=== PATIENT | female | born 1935 | race Caucasian/White ===

== ENCOUNTER 2016-05-15 04:35 | Inpatient (IN) | payer OTHER ==
[~2016-05-15] VITALS: Ht 152.4 cm; Wt 93.4 kg
[~2016-05-15 04:35] MED LIST: DIOVAN; MOTRIN 800 MG
[2016-05-15 04:40] VITALS: BP 155/65
--- NOTE | 2016-05-15 05:00 | NUR ---
PT TAKEN TO BED 7
--- NOTE | 2016-05-15 05:06 | NUR ---
Dr. Banda evaluating patient at bedside.
[2016-05-15] MEDS ORDERED: ASPIRIN 325 MG TAB PO ONE (05:10)
[2016-05-15] MEDS ORDERED: NITROGLYCERIN 0.4 MG TAB SL ONE (05:10)
--- NOTE | 2016-05-15 05:15 | NUR ---
PATIENT PRESENTS TO ED WITH CHEST PAIN . PT STATES SHE HAS HAD THE PAIN X2DAYS AND FEELS SHARP AND INTERMITTENT . DENIES N/V/D; SKIN IS PINK/WARM/DRY; AAOX4 WITH EVEN AND STEADY GAIT; LUNGS CLEAR BL; HR EVEN AND REGULAR; PT DENIES ANY FEVER, SOB, OR COUGH AT THIS TIME; PATIENT STATES PAIN OF 8/10 AT THIS TIME; VSS; PATIENT POSITIONED FOR COMFORT; HOB ELEVATED; BEDRAILS UP X2; BED DOWN. ER MD MADE AWARE OF PT STATUS.
--- NOTE | 2016-05-15 05:26 | NUR ---
X-Ray at bedside.
--- NOTE | 2016-05-15 07:10 | NUR ---
RECEIVED REPORT FROM THE ER NURSE. PT CAME ON FLOOR ON 714. PT AMBULATED FROM THE GURNEY TO BED. PT IS ALERT AND ORIENTED, KINYARWANDA SPEAKING. SHE WANTED TO USE THE BATHROOM AND AMBULATED WITH VERY LITTLE ASSIST. I INTRODUCED MYSELF AND UPDATED THE INFORMATION BOARD. SHE IS STILL IN HER PERSONAL CLOTHES. I HAD HER REMOVED HER TOP AND PANTS AND DRESS INTO HER GOWN. SKIN IS INTACT. PT IS HAS AN IV ON L HAND 22G SL. V/S WITHIN NORMAL LIMITS. NO PAIN REPORTED AT THIS TIME. WILL CONTINUE WITH ADMISSION. ORIENTED HER TO THE ROOM, CALL LIGHT WITHIN REACH. ALL SAFETY MEASURES IN PLACE. WILL CONTINUE TO MONITOR PT.
--- NOTE | 2016-05-15 07:15 | NUR ---
Patient will be admitted to care of DR. WHEELER. Admited to TELE. Will go to room 110A. Belongings list completed. Report to TEE MAGAÑA.
--- NOTE | 2016-05-15 07:23 | NUR ---
Pt report given to TEE MAGAÑA. Transfer of care at this time.
--- NOTE | 2016-05-15 08:31 | NUR ---
PATIENT HAS BEEN SCREENED AND CATEGORIZED HIGH NUTRITION RISK. PATIENT WILL BE SEEN WITHIN 1-2 DAYS OF ADMISSION. 05/15/16-05/16/[address]
[2016-05-15] MEDS ORDERED: ONDANSETRON 4 MG/2 ML VIAL IVP PRN (08:35)
[2016-05-15] MEDS ORDERED: ACETAMINOPHEN 325 MG TAB PO PRN (08:35)
[2016-05-15] MEDS ORDERED: DOCUSATE SODIUM 100 MG GELCAP PO PRN (08:35)
[2016-05-15] MEDS ORDERED: MORPHINE SULFATE 2 MG/ML SYR IVP PRN (08:35)
[2016-05-15] MEDS ORDERED: NITROGLYCERIN 0.4 MG TAB SL PRN (08:55)
[2016-05-15 09:18] VITALS: BP 137/52
[2016-05-15] MEDS ORDERED: METOPROLOL 25 MG TAB PO SCH (10:00)
[2016-05-15] MEDS ORDERED: LISINOPRIL 5 MG TAB PO SCH (10:00)
[2016-05-15] MEDS ORDERED: ATORVASTATIN 20 MG TAB PO SCH (10:00)
--- NOTE | 2016-05-15 10:30 | NUR ---
PT'S WAS AT HER BEDSIDE. GAVE ME HIS NUMBER FOR EMERGENCY CONTACT. WILL KEEP IN SOFT CHART. PT IS SLEEPING SOUNDLY. WILL CONTINUE TO MONITOR PT.
[2016-05-15 12:00] VITALS: BP 131/60
--- NOTE | 2016-05-15 12:00 | NUR ---
PT EATING HER LUNCH. PT ATE MAJORITY OF HER MEAL. TOLERATED WELL. PT SPOKE OF A FALL SHE HAD A COUPLE OF DAYS AGO. SHE FELL AT HOME. SHE HURT HER R LEG AND HIT HER HEAD. SHE IS STILL KIND OF BRUISED UP IN THE FACE. PLACED A BEDSIDE COMMODE BY HER BED SO THAT SHE DOESN'T HAVE TO WALK FAR. ASKED HER IF SHE WANTED A PAIN MED. PT REFUSED. WILL CONTINUE TO MONITOR PT.
[2016-05-15] MEDS: NACL 0.9% 1,000 ML IV SCH (12:40)
--- NOTE | 2016-05-15 13:01 | NUR ---
RADIOLOGY CAME TO GET PT FOR A CT OF THE HEAD. THEY TOOK HER IN A WHEELCHAIR.
--- NOTE | 2016-05-15 13:22 | NUR ---
PT BACK ON THE FLOOR. PT RECONNECTED TO THE IV. NS INFUSING 20ML/HR. PT IS RESTING COMFORTABLY IN BED. CALL LIGHT AT BEDSIDE. WILL CONTINUE TO MONITOR PT.
--- NOTE | 2016-05-15 15:04 | NUR ---
Yohana TAVARES JUST FINISHED. PT TOLERATED WELL. PT IS NOW BACK IN BED. CALL LIGHT WITHIN REACH. WILL CONTINUE TO MONITOR PT.
[2016-05-15 16:47] VITALS: BP 141/89
--- NOTE | 2016-05-15 17:00 | NUR ---
PT RESTING COMFORTABLY IN BED. NO SIGNS OF DISTRESS. WILL CONTINUE TO MONITOR PT.
[2016-05-15] MEDS: ISOSORBIDE DINITRATE 10 MG TAB PO SCH (17:08)
--- NOTE | 2016-05-15 18:30 | NUR ---
AT BEDSIDE. PT SITTING AT EDGE OF BED. NO SIGNS OF DISTRESS. IV STILL INFUSING. PT JUST VISITING. NO SIGNS OF DISTRESS OR PAIN. WILL CONTINUE TO MONITOR PT.
--- NOTE | 2016-05-15 19:10 | NUR ---
ENDORSED PT TO THE CALL CENTER PROFESSIONAL NURSE AT BEDSIDE FOR CONTINUITY OF CARE. PT IS STABLE. AT BEDSIDE.
--- NOTE | 2016-05-15 19:11 | NUR ---
RECEIVED REPORT FROM DAY SHIFT NURSE, TEE MAGAÑA. PT IS AAOX4, FAMILY MEMBER AT BEDSIDE, DENIES ANY PAIN AT THIS TIME. ON NASAL CANNULA AT 2LPM, NO S/S OF RESPIRATORY DISTRESS/DISCOMFORT NOTED. IV SITE IS PATENT AND INTACT, INFUSING WELL. SKIN IS WAR TO TOUCH, HAS FACIAL ABRASION NOTED. PLAN OF CARE DISCUSSED, VERBALIZED UNDERSTANDING. SAFETY MEASURES CHECKED, CALL LIGHT WITHIN REACH. WILL CONTINUE TO MONITOR.
--- NOTE | 2016-05-15 19:30 | NUR ---
PT IS MALTESE SPEAKER,PT IS TRYING TO GET OUT FROM HER BED. ASK THE PT WHAT IS GOING ON TO HER WITH CO-WORKER TERESA WHO IS MALTESE SPEAKER. PT STATED THAT SHE IS OKAY AND THERE IS NOTHING WRONG TO HER. REMINDED THE PT ON HOW TO USE CALL LIGHT WHEN GETTING UP, VERBALIZED UNDERSTANDING. WILL CONTINUE TO MONITOR.
[2016-05-15 19:55] VITALS: BP 140/67
--- NOTE | 2016-05-15 21:30 | NUR ---
PT IS ANXIOUS AND SHE IS TRYING TO GET OUT FROM HER BED. OFFERED PT BEDSIDE COMMODE, PT REFUSED. ASKED WHAT'S GOING TO HER, PT SAID SHE IS OKAY. REMINDED THE PT TO CALM DOWN AND RELAX, VERBALIZED AGREEMENT. SAFETY MEASURES CHECKED, CALL LIGHT WITHIN REACH. CHARGE NURSE AWARE OF PT'S CONDITION. WILL NOTIFY .
--- NOTE | 2016-05-15 21:57 | NUR ---
PAGED DR Luis LEMON, TO UPDATE PT'S CONDITION. WAITING FOR CALLBACK.
--- NOTE | 2016-05-15 22:00 | NUR ---
CALLBACK RECEIVED FROM DR. Luis LEMON. UPDATED PT'S CONDITION, PT IS ANXIOUS AND AGITATED. WILL PUT A NEW ORDER FOR THE PT.
[2016-05-15] MEDS ORDERED: LORazepam 0.5 MG TAB PO PRN (22:40)
--- NOTE | 2016-05-15 23:00 | NUR ---
PT IS OUT OF TELE MONITOR PER [employer]ISTR[employer]. CHECKED THE PT AND PATIENT PULLED HER TELE BOX. MALAY SPEAKER ABRAHAM WAS WITH ME, ASKED THE PT AND SHE SAID THE SHE IS UNCOMFORTABLE WITH THE TELE BOX. NOTED HER NASAL CANNULA WAS OFF. REMINDED THE PT ABOUT THE REASON FOR HAVING TELE BOX AND NASAL CANNULA, VERBALIZED AGREEMENT TO PUT IT BACK. ASKED THE PT WHAT IS GOING ON IN HER MIND, PT VERBALIZED THAT SHE IS WORRIED ABOUT HER . REMINDED THE PT TO KEEP CALM AND RELAX, VERBALIZED AGREEMENT. WILL CONTINUE TO MONITOR.
--- NOTE | 2016-05-15 23:12 | NUR ---
ADMINISTERED ATIVAN 0.5 MG PO PER MD ORDERED. MED INFORMATION WAS GIVEN, BENEFITS AND S/E. PT TOLERATED WELL.
[2016-05-16] VITALS: BP 139/70
--- NOTE | 2016-05-16 00:10 | NUR ---
PT IS CALM, SLEEPING AT THIS TIME. SAFETY MEASURE CHECKED, CALL LIGHT WITHIN REACH. WILL CONTINUE TO MONITOR.
[2016-05-16 04:00] VITALS: BP 140/57
--- NOTE | 2016-05-16 04:18 | NUR ---
PT IS SLEEPING, CALL LIGHT WITHIN REACH. NO S/S OF RESPIRATORY DISTRESS/DISCOMFORT.
--- NOTE | 2016-05-16 06:06 | NUR ---
PT AMBULATED TO BEDSIDE COMMODE, MINIMUM ASSISTANCE. ENSURED SAFETY. NO S/S OF DISTRESS NOTED.
--- NOTE | 2016-05-16 07:10 | NUR ---
RECEIVED PATIENT REPORT. PATIENT AWAKE AND ALERT. NO S/S OF DISTRESS NOTED. PATIENT DENIES ANY CHEST PAIN. IV TO THE LEFT HAND INTACT WITH IVF INFUSING WELL. PATIENT ON TELE MONITORING. PATIENT SCHEDULED TO HAVE A STRESS TEST TODAY. PATIENT AWARE AND VERBALIZED UNDERSTANDING. BED LOWERED WITH CALL LIGHT WITHIN REACH. WILL CONTINUE TO MONITOR
--- NOTE | 2016-05-16 07:15 | NUR ---
ENDORSED REPORT TO DAY SHIFT NURSE FOR CONTINUITY OF CARE. PT IS STABLE.
[2016-05-16 08:00] VITALS: BP 133/53
--- NOTE | 2016-05-16 09:00 | NUR ---
WOUND CARE EVALUATION NOTES: SEEN PATIENT TODAY RE: FACIAL ABRASIONS 2/2 FALL. PATIENT IS SLEEPING AT THIS TIME, AROUSABLE BY NAME. ABLE TO FOLLOW SIMPLE COMMANDS. ORIENTED TO PERSON, PLACE, DATE AND TIME. SKIN WARM TO TOUCH WNL, TOENAILS WNL, NO EDEMA, FEW HAIR GROWTH AND +2 BILATERAL PEDAL PULSES. URINE AND BOWEL CONTINENT, ABLE TO MAKE HIS NEEDS KNOWN. ABLE TO TURN SELF WITHOUT ASSISTANCE. INITIAL PLAN OF CARE AND PRESSURE PRESSURE PREVENTIVE MEASURES DISCUSSED, ABLE TO VERBALIZE UNDERSTANDING. INTEGUMENTARY: FOREHEAD - ABRASION - BROWN SCAB - PW FADING PURPLE UPPER LIP - ABRASION - BROWN RED SCAB RECOMMENDATIONS: -KEEP AREA CLEAN AND DRY AT ALL TIMES. -TURN AND REPOSITION PATIENT Q2H -ASSESS AND MONITOR SKIN CONDITION DURING POSITION CHANGE, PLEASE PAY PARTICULAR ATTENTION TO SACRALCOCCYX, ELBOWS AND HEELS -OFFLOAD BILATERAL HEELS BY PLACING PILLOWS UNDER CALVES AT ALL TIMES, UNLESS OTHERWISE CONTRAINDICATED. -KEEP SKIN CLEAN AND DRY AT ALL TIMES. RECOMMENDATIONS DISCUSSED WITH PRIMARY RN. NO FOLLOW UP NEEDED AT THIS TIME. PLEASE CONTACT [facility] FOR ANY CONCERNS, QUESTIONS AND CHANGES IN SKIN CONDITION.
[2016-05-16] MEDS: ECOTRIN 81 MG TABEC PO SCH (09:26)
[2016-05-16] MEDS: ATORVASTATIN 20 MG TAB PO SCH (09:26)
[2016-05-16] MEDS: METOPROLOL 25 MG TAB PO SCH ×2 (09:27→20:25)
[2016-05-16] MEDS: ISOSORBIDE DINITRATE 10 MG TAB PO SCH ×3 (09:27→17:00)
[2016-05-16] MEDS: LISINOPRIL 5 MG TAB PO SCH (09:27)
[2016-05-16] MEDS ORDERED: REGADENOSON 0.4 MG/5 ML SYR IV SCH (10:00)
[2016-05-16] MEDS: NACL 0.9% 1,000 ML IV SCH (11:20)
--- NOTE | 2016-05-16 11:37 | NUR ---
PATIENT LEFT FOR A STRESS TEST
[2016-05-16 12:00] VITALS: BP 125/57
--- NOTE | 2016-05-16 12:04 | NUR ---
SS NOTE: FAXED PT INFORMATION AND PHYSICIAN'S ORDER FOR FWW TO [facility], RECEIVED FAX CONFIRMATION Addendum: 05/16/16 at 1346 by Irena Ramsay SS [facility] FAX NUMBER IS [phone]
--- NOTE | 2016-05-16 13:21 | NUR ---
05/16/16 RD INITIAL ASSESSMENT COMPLETED PLEASE REFER TO NUTRITION ASSESSMENT UNDER CARE ACTIVITY FOR ESTIMATED NUTRITIONAL NEEDS. RD RECOMMENDATIONS: 1. CONTINUE CLEAR LIQUID DIET MEDICALLY APPROPRIATE PER MD. 2. IF/WHEN PT IS MEDICALLY STABLE TO ADVANCE DIET, ADVANCE TOLERATED TO CARDIAC DIET D/T PT WITH PMH OF HTN AND ELEVATED BLOOD PRESSURE LEVELS. 3. RD WILL F/U 3-5 DAYS; MODERATE RISK. JOSE VICKERS, RD
--- NOTE | 2016-05-16 13:27 | NUR ---
[facility] STRESS TEST DONE
--- NOTE | 2016-05-16 13:40 | NUR ---
PATIENT BACK FROM STRESS TEST. NO S/S OF DISTRESS NOTED
--- NOTE | 2016-05-16 13:45 | NUR ---
SS NOTE: LEFT TWO MESSAGES FOR FOLLOW UP REGARDING PT'S FWW WITH [facility] ([phone])
--- NOTE | 2016-05-16 13:45 | NUR ---
PT NOTES CHART REVIEWED AND CLEARED FOR PT BY RN. PATIENT HAS JUST RETURNED FROM STRESS TEST. AT BEDSIDE. PATIENT DECLINES PARTICIPATION IN THERAPY TODAY D/T HAVING EXAM EARLIER AND GENERAL FATIGUE FROM NOT EATING MUCH. EDUCATED AND ENCOURAGED HEP PARTICIPATION DAILY AND WHEN FEELING BETTER. LEFT IN CARE OF , RN MADE AWARE. WILL FOLLOW UP PATIENT TOMORROW IF POSSIBLE. PVEx1 Addendum: 05/16/16 at 1423 by Kennedi Mckeon PT PHYSICAL THERAPY CO-SIGN The Physical Therapy Progress Notes documented by Utilization Review Coordinator have been reviewed. I CONCUR W/SUBWAY TRAIN OPERATOR NOTE Reviewed/Co-Signed by: Kennedi Mckeon PT Documentation Done by: VERONICA DE LA CRUZ SUBWAY TRAIN OPERATOR Addendum: 05/16/16 at 1528 by Lily Matthew PT PHYSICAL THERAPY CO-SIGN The Physical Therapy Progress Notes documented by Utilization Review Coordinator have been reviewed. Reviewed/Co-Signed by: Lily Matthew PT Documentation Done by:VERONICA DE LA CRUZ PTA
--- NOTE | 2016-05-16 14:30 | NUR ---
PATIENT ASLEEP IN BED. NO S/S OF DISTRESS NOTED
--- NOTE | 2016-05-16 14:36 | NUR ---
SS NOTE: PER SARAY FROM [facility] ([phone]), THEY WILL SHIP OUT PT'S FWW TO PT'S HOME ON THURSDAY/THURSDAY OF NEXT WEEK.
[2016-05-16 16:00] VITALS: BP 144/61
--- NOTE | 2016-05-16 16:09 | NUR ---
SS NOTE: MANE MARIANO FROM [facility] ([phone]), THEY WILL CONTACT PT TO SCHEDULE AN APPT TO SEE HER AT HOME UPON DISCHARGE.
--- NOTE | 2016-05-16 17:10 | NUR ---
PATIENT TOLD THAT WALKER WILL BE DELIVERED TO HER HOUSE NEXT WEEK. PATIENT GIVEN A NUMBER TO CALL IF WALKER IS NOT DELIVERED UNTIL THURSDAY. PATIENT VERBALIZED UNDERSTANDING
--- NOTE | 2016-05-16 17:30 | NUR ---
MADE DR ALVAREZ AWARE THAT PATIENT IS ABLE TO VOID. STATES THAT THERE IS NO NEED TO CATHETERIZE THE PATIENT LONG SHE COULD PROVIDE A URINE SAMPLE
--- NOTE | 2016-05-16 19:15 | NUR ---
RECEIVED REPORT FROM DAY RN AT BEDSIDE, PATIENT IS AAOX4 BELARUSIAN SPEAKING. PATIENT IS ON ROOM AIR SITTING ON CHAIR AT BEDSIDE. IS AT BEDSIDE. PATIENT SHOWS NO SOB OR SIGN OF DISTRESS. DENIES PAIN AT THIS TIME. IV IS TO RIGHT HAND 22G PATENT WITH FLUIDS INFUSING WELL. PATIENT HAS FACIAL ABRASION TO RIGHT SIDE OF FACE S/P FALL. OPEN TO AIR. DISCUSSED PLAN OF CARE WITH PATIENT, PATIENT VERBALIZED UNDERSTANDING. SAFETY MEASURES CHECKED, CALL LIGHT WITHIN REACH. WILL CONTINUE TO MONITOR.
--- NOTE | 2016-05-16 19:27 | NUR ---
PATIENT REPORT GIVEN AT BEDSIDE. PATIENT ENDORSED TO THE NIGHT NURSE IN STABLE CONDITION
[2016-05-16 20:00] VITALS: BP 138/59
--- NOTE | 2016-05-16 20:25 | NUR ---
DID NOT ADMINISTER LOPRESSOR D/T PATIENT LOW HR OF 62. BP 138/59, PATIENT NO SIGN OF DISTRESS, PATIENT RESTING IN BED. CALL LIGHT WITHIN REACH. WILL CONTINUE TO MONITOR.
--- NOTE | 2016-05-16 22:30 | NUR ---
PATIENT USED BEDSIDE COMMODE, ASSISTED BACK TO BED, NO SOB OR SIGN OF DISTRESS, CALL LIGHT WITHIN REACH. WILL CONTINUE TO MONITOR.
[2016-05-17] VITALS: BP 142/66
--- NOTE | 2016-05-17 00:30 | NUR ---
PATIENT RESTING IN BED, NO SOB OR SIGN OF DISTRESS, VITAL SIGNS STABLE. CALL LIGHT WITHIN REACH. WILL CONTINUE TO MONITOR.
--- NOTE | 2016-05-17 02:00 | NUR ---
PATIENT SLEEPING, NO SOB OR SIGN OF DISTRESS, CALL LIGHT WITHIN REACH. WILL CONTINUE TO MONITOR.
[2016-05-17 04:00] VITALS: BP 134/68
--- NOTE | 2016-05-17 04:10 | NUR ---
PATIENT SLEEPING, NO SOB OR SIGN OF DISTRESS, VITAL SIGNS STABLE. CALL LIGHT WITHIN REACH. WILL CONTINUE TO MONITOR.
--- NOTE | 2016-05-17 06:09 | NUR ---
PATIENT SLEEPING, NO SOB OR SIGN OF DISTRESS, CALL LIGHT WITHIN REACH. WILL CONTINUE TO MONITOR
--- NOTE | 2016-05-17 07:20 | NUR ---
ENDORSED PATIENT TO DAY SHIFT RN AT BEDSIDE, PATIENT IN STABLE CONDITION.
--- NOTE | 2016-05-17 07:20 | NUR ---
RECEIVED PATIENT REPORT. PATIENT AWAKE, ALERT AND ORIENTED. NO S/S OF DISTRESS NOTED. PATIENT DENIES PAIN. PATIENT ON ROOM AIR. IV TO THE RIGHT HAND INTACT WITH IVF INFUSING WELL. PATIENT ON TELE MONITORING. BED LOWERED WITH CALL LIGHT WITHIN REACH. WILL CONTINUE TO MONITOR
[2016-05-17 08:00] VITALS: BP 145/73
--- NOTE | 2016-05-17 08:56 | NUR ---
RECEIVED A CALL FROM DR BERMUDEZ. STATES THAT PATIENT HAS NO ISCHEMIA AND CLEAR TO BE DISCHARGED FROM CARDIAC STANDPOINT
[2016-05-17] MEDS: ISOSORBIDE DINITRATE 10 MG TAB PO SCH ×3 (09:00→16:53)
[2016-05-17] MEDS: METOPROLOL 25 MG TAB PO SCH ×2 (09:00→21:10)
[2016-05-17] MEDS: ECOTRIN 81 MG TABEC PO SCH (10:04)
[2016-05-17] MEDS: LISINOPRIL 5 MG TAB PO SCH (10:05)
[2016-05-17] MEDS: ATORVASTATIN 20 MG TAB PO SCH (10:05)
[2016-05-17] MEDS: NACL 0.9% 1,000 ML IV SCH (11:20)
[2016-05-17 12:00] VITALS: BP 153/62
--- NOTE | 2016-05-17 13:20 | NUR ---
PATIENT AMBULATED AROUND THE UNIT USING A WALKER WITH THE PHYSICAL THERAPIST. NO S/S OF DISTRESS NOTED
--- NOTE | 2016-05-17 14:00 | NUR ---
PATIENT SEEN BY DR DUMONT. STATES PATIENT WILL STAY FOR OBSERVATION TODAY AND WILL POSSIBLY BE DISCHARGED TOMORROW
--- NOTE | 2016-05-17 15:14 | NUR ---
PHYSICAL THERAPY CO-SIGN The Physical Therapy Progress Notes documented by Machine Fastener have been reviewed. Reviewed/Co-Signed by: Lily Matthew Documentation Done by:VERONICA DE LA CRUZ FRONT DESK HOST PROGRESSING W/ GAIT ENDURANCE; POC REVIEWED W/ FRONT DESK HOST. Addendum: 05/17/16 at 1515 by Lily Matthew PT Amended: Links added.
[2016-05-17 16:00] VITALS: BP 137/104
--- NOTE | 2016-05-17 16:30 | NUR ---
PATIENT COMFORTABLY RESTING IN BED. NO S/S OF DISTRESS NOTED
--- NOTE | 2016-05-17 19:04 | NUR ---
PT SEEN AMBULATING TO BATHROOM, FAMILY WITH PT. NO S/S OF DISTRESS.
--- NOTE | 2016-05-17 19:20 | NUR ---
PATIENT REPORT GIVEN AT BEDSIDE. ENDORSED PATIENT IN STABLE CONDITION
--- NOTE | 2016-05-17 19:23 | NUR ---
RECEIVED PT REPORT FROM JAX Bruce RN AT BEDSIDE FOR PT CONTINUITY OF CARE. PT NOTED STABLE.
--- NOTE | 2016-05-17 19:23 | NUR ---
RECEIVED PT REPORT FROM JAX Bruce RN AT BEDSIDE FOR PT CONTINUITY OF CARE. PT NOTED STABLE
--- NOTE | 2016-05-17 19:51 | NUR ---
SHIFT ASSESSMENT AT THIS TIME. PT IS A/O X3, NO ACUTE DISTRESS NOTED. PT SITTING IN CHAIR WATCHING TV, DISCUSSING WITH FAMILY AT BEDSIDE. VSS, PT ON ROOM AIR OXYGEN SATURATION AT 99%. PT DENIES N/V/D. PER PT HAD X2 BM TODAY. NO RESPIRATORY DISTRESS. PT DENIES CHEST PAIN AND SOB. DENIES PAIN. SKIN INTACT. IV ACCESS TO RT HAND #22G, OCCLUDED, WILL RESTART NEW ONE. NO SWELLING NOTED. PT LUNGS ARE CLEAR, BOWEL SOUNDS ACTIVE. NOTED PT TO HAVE BRUISE TO FOREHEAD AND SMALL LIP ABOVE LIP DRY SCAB MEAT AND SEAFOOD MANAGER. ALL OTHER SKIN INTACT. DISCUSSED PLAN OF CARE, PT ABLE TO VERBALIZE UNDERSTANDING. CALL LIGHT WITHIN EASY REACH. WILL CONTINUE TO MONITOR PT. SAFETY PRECAUTIONS IMPLEMENTED.
[2016-05-17 20:00] VITALS: BP 133/53
--- NOTE | 2016-05-17 20:39 | NUR ---
PT PULLED OUT IV ACCESS, CANNULA INTACT. WILL START NEW IV.
--- NOTE | 2016-05-17 22:15 | NUR ---
STARTED NEW IV TO LEFT FA, PATENT.
--- NOTE | 2016-05-17 22:48 | NUR ---
PER BUDGET REPORT CLERK PT HR IS 47. WENT TO CHECK ON PATIENT, PT IS ASLEEP. ABLE TO WAKE UP TO NAME. NO ACUTE DISTRESS. PT DENIES CHEST PAIN, N/V. OXYGEN SATURATION NOTED 99% ON RA. WILL CONTINUE TO MONITOR.
--- NOTE | 2016-05-17 23:49 | NUR ---
ASSIST PT TO BEDSIDE COMMODE, PT VOIDED CLEAR URINE. ASSIST BACK TO BED. VS TAKEN AND ARE STABLE, PT STILL DENIES N/V AND CHEST PAIN.
[2016-05-18] VITALS: BP 117/77
--- NOTE | 2016-05-18 01:53 | NUR ---
PT NOTED SLEEPING, NO DISCOMFORT NOTED OR DISTRESS. CALL LIGHT WITHIN REACH. BED ALARM ON.
[2016-05-18 04:00] VITALS: BP 139/59
[2016-05-18] MEDS: NACL 0.9% 1,000 ML IV SCH (04:10)
--- NOTE | 2016-05-18 04:10 | NUR ---
PT RESTING NO ACUTE DISTRESS. WILL CONTINUE TO MONITOR. VSS.
--- NOTE | 2016-05-18 06:44 | NUR ---
PT NOTED SLEEPING, NO ACUTE DISTRESS. CALL LIGHT WITHIN REACH.
--- NOTE | 2016-05-18 07:18 | NUR ---
ENDORSED PT TO JAX Bruce RN IN STABLE CONDITION FOR CONTINUITY OF CARE.
--- NOTE | 2016-05-18 07:20 | NUR ---
RECEIVED PATIENT IN STABLE CONDITION. PATIENT DENIES ANY PAIN. NO S/S OF DISTRESS NOTED. IV TO THE RIGHT HAND INTACT WITH IVF INFUSING WELL. PATIENT ON TELE MONITORING. BED LOWERED WITH CALL LIGHT WITHIN REACH.
[2016-05-18 07:58] VITALS: BP 147/77
[2016-05-18] MEDS: LISINOPRIL 5 MG TAB PO SCH (08:29)
[2016-05-18] MEDS: ATORVASTATIN 20 MG TAB PO SCH (08:30)
[2016-05-18] MEDS: METOPROLOL 25 MG TAB PO SCH (08:30)
[2016-05-18] MEDS: ISOSORBIDE DINITRATE 10 MG TAB PO SCH ×2 (08:30→13:35)
[2016-05-18] MEDS: ECOTRIN 81 MG TABEC PO SCH (08:31)
--- NOTE | 2016-05-18 08:40 | NUR ---
ADMINISTERED SCHEDULED MEDICATIONS. PATIENT TOLERATED WELL
--- NOTE | 2016-05-18 09:47 | NUR ---
PATIENT RESTING IN BED. NO S/S OF DISTRESS NOTED
--- NOTE | 2016-05-18 11:45 | NUR ---
PATIENT RESTING COMFORTABLY IN BED. NO S/S OF DISTRESS NOTED
[2016-05-18 12:00] VITALS: BP 136/46
[2016-05-18] MEDS ORDERED: LISINOPRIL5 M1 PO (13:10)
[2016-05-18] MEDS ORDERED: ASPIRIN ADULT L81 M2 PO (13:10)
[2016-05-18] MEDS ORDERED: LOPRESSOR25 MG PO (13:10)
[2016-05-18] MEDS ORDERED: ACETAMINOPHEN325 M2 PO (13:10)
[2016-05-18] MEDS ORDERED: ISORDIL10 M1 PO (13:10)
[2016-05-18] MEDS ORDERED: ATORVASTATIN CA20 MG PO (13:10)
--- NOTE | 2016-05-18 13:40 | NUR ---
PATIENT DISCHARGED TO HOME. DISCHARGE INSTRUCTIONS AND DISCHARGE PRESCRIPTION GIVEN. PATIENT VERBALIZED UNDERSTANDING. IV LINE DISCONTINUED. TELE LEADS TAKEN OFF. PATIENT LEFT WITH ALL HER BELONGINGS AND DISCHARGE PAPERS. PATIENT LEFT IN STABLE CONDITION
== END 2016-05-18 13:40 | disposition home or self-care (01) | DRG 205 ==
LOC: MED 04:35 → MTU 06:41
PROVIDERS: ADMIT Family Medicine; ATTEND Family Medicine
DX: M94.0 Chondrocostal junction syndrome [Tietze] (principal); I50.43 Acute on chronic combined systolic (congestive) and diastolic (congestive) heart failure; Z68.41 Body mass index [BMI] 40.0-44.9, adult; E44.1 Mild protein-calorie malnutrition; K21.9 Gastro-esophageal reflux disease without esophagitis; S00.81XA Abrasion of other part of head, initial encounter; E78.5 Hyperlipidemia, unspecified; M17.9 Osteoarthritis of knee, unspecified; J45.909 Unspecified asthma, uncomplicated; E02 Subclinical iodine-deficiency hypothyroidism; I25.10 Atherosclerotic heart disease of native coronary artery without angina pectoris; E11.9 Type 2 diabetes mellitus without complications; I11.0 Hypertensive heart disease with heart failure; J32.3 Chronic sphenoidal sinusitis; E66.01 Morbid (severe) obesity due to excess calories; I08.1 Rheumatic disorders of both mitral and tricuspid valves; W19.XXXA Unspecified fall, initial encounter; Y93.89 Activity, other specified; Y92.89 Other specified places as the place of occurrence of the external cause; Y99.8 Other external cause status